=== PATIENT | female | born 1980 | race Caucasian/White ===

== ENCOUNTER → 2022-12-17 | Outpatient (CLI) | payer OTHER ==
[~2022-12-17] MED LIST: AMOCLA500 PO; AZIT250 PO; HYDACE5 PO; PRED20 PO
[2022-12-20 15:08] LABS: HPV 16 Negative (Negative); HPV 18 Negative (Negative); HPV OTHER HR TYPES Negative (Negative)
== END ==
LOC: LAB SHORT 14:25 → LAB 14:25
PROVIDERS: Obstetrics & Gynecology
DX: Z01.419 Encounter for gynecological examination (general) (routine) without abnormal findings (principal)
CPT/HCPCS: 87624; G0145

== ENCOUNTER → 2023-02-07 | Outpatient (CLI) | payer OTHER ==
[~2023-02-07] MED LIST changes: +TESTOSTERONE CREAM TOP
[2023-02-07 14:39] LABS: Source, Urine Clean Catch
[2023-02-07 16:06] LABS: Appearance, Urine Clear (Clear); Bilirubin, Urine Neg (Neg); Blood, Urine Neg (Neg); Color, Urine Yellow (P-Yellow); Glucose Qualitative, Urine Neg (Neg); Ketones, Urine Neg (Neg); Leukocyte Esterase, Urine 2+ (Neg); Nitrite, Urine Neg (Neg); Protein, Urine 1+ (Neg); Specific Gravity, Urine 1.015 (1.003-1.022); Urobilinogen, Urine NORM (Normal)
[2023-02-07 17:02] LABS: Red Blood Cells, Urine Not Seen /hpf (0-2); Squamous Epithelial Cells Rare /hpf (Few)
[2023-02-07 17:03] LABS: Bacteria Mod /hpf
== END | disposition home or self-care (01) ==
LOC: LAB 14:34 → LAB SHORT 14:34
PROVIDERS: Obstetrics & Gynecology
DX: Z34.82 Encounter for supervision of other normal pregnancy, second trimester (principal); Z78.9 Other specified health status
CPT/HCPCS: 81001; 87086

== ENCOUNTER 2023-02-14 08:09 | Day surgery (SDC) | payer OTHER ==
[2023-02-14] VITALS (12 sets, daily range): BP systolic 112–147; BP diastolic 65–100
[~2023-02-14] VITALS: Ht 165.1 cm; Wt 86.6 kg
[2023-02-14] MEDS ORDERED: DEPO-TESTO200 MG/11 TOP (08:31)
--- NOTE | 2023-02-14 16:25 | NUR ---
DISCHARGE PT D/C AT APPROXIMATELY 1615 VIA WC TO POV. PAIN IS UNDER CONTROL. PT ABLE TO AMBULATE INDEPENDENTLY. MINIMAL VAGINAL BLEEDING. PT IS ABLE TO VOID. D/C INSTRUCTIONS GIVEN BY Maria Del Carmen SILVA RN. PT EXPRESSED UNDERSTANDING OF INSTRUCTIONS AND ALL QUESTIONS ANSWERED. VSS, PT AFEBRILE.
--- NOTE | 2023-02-14 16:37 | NUR ---
DISCHARGE SUMMARY POD0 ROBOTIC ASSISTED LAVH, A/OX4, VSS, TOLERATING PO, 4 ABD LAP SITES C/D/I WITH DERMABOND, MYRIAM PAD AT ARRIVAL HAD SCANT DRAINAGE NOTED ON IT, NEW ONE PROVIDED AND WAS CLEAN AT TIME OF DISCHARGE, PT ABLE TO AMBULATE TO THE BATHROOM INDEPENDENTLY AND VOIDING WELL, HE HAD SEVERAL UNMEASURED VOIDS AND ONE MEASURED, DENEIS PAIN T/O HIS TIME OUT HERE ON THE FLOOR. DISCHARGE CRITERIA MET. DISCUSSED DISCHARGE INFORMATION WITH HIM AND HIS LIFE PARTNER INCLUDING HOME CARE, MEDICATIONS, AND FOLLOW UP APPOINTMENTS. IV ACCESS REMOVED PRIOR TO DC. PT ESCORTED OUT VIA WC TO PRIVATE AUTO TO GO HOME.
== END 2023-02-14 16:30 | disposition home or self-care (01) ==
LOC: ORSCMMR 08:09 → ORD 09:30 → ORSCMMR 09:45 → ORD 10:00 → ORSCMMR 12:58 → SURS 12:58 → ORSCMMR 16:30
PROVIDERS: Obstetrics & Gynecology
PROC: 0UT7FZZ Resection of Bilateral Fallopian Tubes, Via Natural or Artificial Opening With Percutaneous Endoscopic Assistance (ICD-10-PCS; principal; 2023-02-14 09:45)
PROC: 0UT9FZZ Resection of Uterus, Via Natural or Artificial Opening With Percutaneous Endoscopic Assistance (ICD-10-PCS; principal; 2023-02-14 09:45)
DX: N93.9 Abnormal uterine and vaginal bleeding, unspecified (principal); D50.8 Other iron deficiency anemias; D25.2 Subserosal leiomyoma of uterus; Z78.9 Other specified health status; N73.6 Female pelvic peritoneal adhesions (postinfective); F64.9 Gender identity disorder, unspecified; I10 Essential (primary) hypertension; F41.8 Other specified anxiety disorders
CPT/HCPCS: 36415; 86850; 86900; 86901; 88307; J0690; J1100; J1885; J2250; J2405; J2704; J3010; J7120

== ENCOUNTER 2023-09-10 10:56 | Emergency (ER) | payer OTHER ==
[~2023-09-10] VITALS: Ht 165.1 cm; Wt 86.2 kg
[~2023-09-10 10:56] MED LIST changes: +DEPO-TESTO200 MG/11 TOP
[2023-09-10 10:58] VITALS: BP 166/95
== END 2023-09-10 13:57 | disposition home or self-care (01) ==
LOC: ER 10:56
DX: S93.602A Unspecified sprain of left foot, initial encounter (principal); W22.8XXA Striking against or struck by other objects, initial encounter; Z88.8 Allergy status to other drugs, medicaments and biological substances; Z88.1 Allergy status to other antibiotic agents; Z91.040 Latex allergy status; I10 Essential (primary) hypertension
CPT/HCPCS: 73630